=== PATIENT | male | born 1950 | race African-American/Black ===

== ENCOUNTER 2018-08-21 23:46 | Emergency (ER) | payer OTHER, MEDICAID ==
[~2018-08-21] VITALS: Ht 177.8 cm; Wt 73.0 kg
[~2018-08-21 23:46] MED LIST: ASPI-1158 PO; COR12 PO; FERR325T23 PO; FOLI-43 PO; ISOS30TA6 PO; LAM25 PO; LEVO25TA7 PO; LISI-186 PO; PHEN100C4 PO; THIA100T72 PO
[2018-08-21 23:56] VITALS: BP 170/90
== END 2018-08-22 00:45 | disposition left against medical advice (07) ==
LOC: ER 23:46
DX: Z53.21 Procedure and treatment not carried out due to patient leaving prior to being seen by health care provider (principal); J45.909 Unspecified asthma, uncomplicated; I11.9 Hypertensive heart disease without heart failure; R56.9 Unspecified convulsions

== ENCOUNTER 2018-11-15 14:34 | Inpatient (IN) | payer OTHER, MEDICAID ==
[~2018-11-15] VITALS: Ht 167.6 cm; Wt 67.1 kg
[2018-11-15 15:02] VITALS: BP 112/64
[2018-11-15] MEDS ORDERED: ACETAMINOPHEN 325MG TABLET PO PRN (18:30)
[2018-11-15] MEDS ORDERED: IPRATROPIUM/ALBUTEROL 0.5-3(2.5)MG/3ML NEB HHN PRN (18:30)
[2018-11-15] MEDS: HYDROCODONE/ACETAMINOPHEN 5/325MG TABLET PO PRN (19:53)
[2018-11-15 20:00] VITALS: BP 112/73
[2018-11-15] MEDS: ZOLPIDEM TARTRATE 5MG TABLET PO PRN (20:40)
[2018-11-15 23:47] VITALS: BP 113/65
[2018-11-16] VITALS: BP 106/58
[2018-11-16 04:00] VITALS: BP 114/66
[2018-11-16] MEDS: MORPHINE SULFATE 2 MG/ML CPJ (NOT FOR IM USE) IV PRN ×3 (04:05→22:11)
[2018-11-16] MEDS: SODIUM CHLORIDE 0.45% 1,000 ML IV SCH ×3 (04:06→13:47)
[2018-11-16 07:05] LABS: CHLORIDE 112 mEq/L (98-107)
[2018-11-16 08:00] VITALS: BP 104/65
[2018-11-16] MEDS: LEVOTHYROXINE SODIUM 25MCG TABLET PO SCH (08:08)
[2018-11-16] MEDS: PHENYTOIN SODIUM EXTENDED 100MG CAPSULE PO SCH ×3 (08:11→17:41)
[2018-11-16] MEDS: FOLIC ACID 1MG TABLET PO SCH (08:12)
[2018-11-16] MEDS: THIAMINE HCL 100MG TABLET PO SCH (08:12)
[2018-11-16] MEDS: ASPIRIN 81MG EC TABLET PO SCH (08:12)
[2018-11-16] MEDS: LAMOTRIGINE 25MG TABLET PO SCH (08:12)
[2018-11-16] MEDS: CARVEDILOL 12.5MG TABLET PO SCH ×2 (09:00→20:42)
[2018-11-16] MEDS: LISINOPRIL 5MG TABLET PO SCH (09:00)
[2018-11-16] MEDS: FERROUS SULFATE 325MG TABLET PO SCH (10:27)
[2018-11-16] MEDS: ISOSORBIDE MONONITRATE 30MG TABLET SR 24HR PO SCH (10:55)
[2018-11-16 12:00] VITALS: BP 99/61
[2018-11-16 16:00] VITALS: BP 120/68
[2018-11-16 16:26] LABS: HEMATOCRIT. 28.8 % (42.0-52.0); HEMOGLOBIN. 9.6 g/dL (14.0-18.0); MEAN CORPUSCULAR HEMOGLOBIN 34.7 pg (28.0-32.0); MEAN CORPUSCULAR VOLUME 104.2 fL (80.0-94.0); MEAN PLATELET VOLUME 9.6 fl (7.4-10.4); PLATELET 197 x1000/uL (130-400); RED BLOOD CELL COUNT 2.76 mill/uL (4.7-6.1); RED CELL DISTRIBUTION WIDTH 12.9 % (11.6-14.6)
[2018-11-16 16:52] LABS: PHOSPHORUS 2.9 mg/dL (2.5-4.9)
[2018-11-16 17:35] LABS: PLATELET ESTIMATE NORMAL
[2018-11-16] MEDS: ENOXAPARIN 40MG/0.4ML SYR SUBCUT SCH (17:43)
[2018-11-16 20:00] VITALS: BP 101/60
[2018-11-17] VITALS: BP 107/68
[2018-11-17] MEDS: ZOLPIDEM TARTRATE 5MG TABLET PO PRN ×2 (00:48→22:17)
[2018-11-17] MEDS: SODIUM CHLORIDE 0.45% 1,000 ML IV SCH (00:48)
[2018-11-17 04:00] VITALS: BP 112/74
[2018-11-17 07:41] LABS: HEMATOCRIT. 26.4 % (42.0-52.0); HEMOGLOBIN. 8.9 g/dL (14.0-18.0); MEAN PLATELET VOLUME 9.4 fl (7.4-10.4); PLATELET 187 x1000/uL (130-400); RED BLOOD CELL COUNT 2.56 mill/uL (4.7-6.1); RED CELL DISTRIBUTION WIDTH 12.8 % (11.6-14.6)
[2018-11-17 07:55] LABS: CHLORIDE 109 mEq/L (98-107)
[2018-11-17 08:00] VITALS: BP 114/57
[2018-11-17] MEDS: LEVOTHYROXINE SODIUM 25MCG TABLET PO SCH (08:27)
[2018-11-17] MEDS: LAMOTRIGINE 25MG TABLET PO SCH (09:28)
[2018-11-17] MEDS: THIAMINE HCL 100MG TABLET PO SCH (09:28)
[2018-11-17] MEDS: PHENYTOIN SODIUM EXTENDED 100MG CAPSULE PO SCH ×3 (09:28→18:40)
[2018-11-17] MEDS: FOLIC ACID 1MG TABLET PO SCH (09:28)
[2018-11-17] MEDS: CARVEDILOL 12.5MG TABLET PO SCH ×2 (09:29→22:16)
[2018-11-17] MEDS: ISOSORBIDE MONONITRATE 30MG TABLET SR 24HR PO SCH (09:29)
[2018-11-17] MEDS: LISINOPRIL 5MG TABLET PO SCH (09:30)
[2018-11-17] MEDS: FERROUS SULFATE 325MG TABLET PO SCH (09:30)
[2018-11-17] MEDS: ASPIRIN 81MG EC TABLET PO SCH (09:30)
[2018-11-17] MEDS: LORAZEPAM 2MG/ML CPJ IV PRN ×2 (10:47→19:46)
[2018-11-17 11:36] LABS: PLATELET ESTIMATE NORMAL
[2018-11-17 12:00] VITALS: BP 100/68
[2018-11-17] MEDS: MORPHINE SULFATE 2 MG/ML CPJ (NOT FOR IM USE) IV PRN (12:16)
[2018-11-17 14:20] LABS: CLARITY URINE CLEAR (CLEAR); COLOR URINE YELLOW (YELLOW); KETONES URINE NEGATIVE (NEGATIVE); LEUKOCYTE ESTERASE URINE NEGATIVE (NEGATIVE); NITRITE URINE NEGATIVE (NEGATIVE); OCCULT BLOOD URINE NEGATIVE (NEGATIVE); PROTEIN URINE NEGATIVE (NEGATIVE); SPECIFIC GRAVITY URINE 1.008 (1.005-1.030); UROBILINOGEN URINE 0.2 E.U./dL (0.2-1.0)
[2018-11-17 16:00] VITALS: BP 121/78
[2018-11-17] MEDS: ENOXAPARIN 40MG/0.4ML SYR SUBCUT SCH (18:40)
[2018-11-17 20:00] VITALS: BP 127/84
[2018-11-18] VITALS: BP 112/70
[2018-11-18] MEDS: SODIUM CHLORIDE 0.45% 1,000 ML IV SCH ×2 (03:20→17:32)
[2018-11-18 04:00] VITALS: BP 117/64
[2018-11-18] MEDS: LORAZEPAM 2MG/ML CPJ IV PRN ×2 (04:54→13:40)
[2018-11-18 07:12] LABS: HEMATOCRIT. 27.9 % (42.0-52.0); HEMOGLOBIN. 9.3 g/dL (14.0-18.0); MEAN CORPUSCULAR HEMOGLOBIN 34.1 pg (28.0-32.0); MEAN CORPUSCULAR VOLUME 101.7 fL (80.0-94.0); MEAN PLATELET VOLUME 9.3 fl (7.4-10.4); PLATELET 196 x1000/uL (130-400); RED BLOOD CELL COUNT 2.74 mill/uL (4.7-6.1); RED CELL DISTRIBUTION WIDTH 12.7 % (11.6-14.6)
[2018-11-18 07:30] LABS: CHLORIDE 109 mEq/L (98-107)
[2018-11-18 08:00] VITALS: BP 141/82
[2018-11-18] MEDS: FERROUS SULFATE 325MG TABLET PO SCH (09:32)
[2018-11-18] MEDS: THIAMINE HCL 100MG TABLET PO SCH (09:33)
[2018-11-18] MEDS: PHENYTOIN SODIUM EXTENDED 100MG CAPSULE PO SCH ×3 (09:33→17:32)
[2018-11-18] MEDS: LEVOTHYROXINE SODIUM 25MCG TABLET PO SCH (09:33)
[2018-11-18] MEDS: ASPIRIN 81MG EC TABLET PO SCH (09:34)
[2018-11-18] MEDS: FOLIC ACID 1MG TABLET PO SCH (09:34)
[2018-11-18] MEDS: LAMOTRIGINE 25MG TABLET PO SCH (09:34)
[2018-11-18] MEDS: ISOSORBIDE MONONITRATE 30MG TABLET SR 24HR PO SCH (09:37)
[2018-11-18] MEDS: CARVEDILOL 12.5MG TABLET PO SCH ×2 (09:38→21:29)
[2018-11-18] MEDS ORDERED: SODIUM POLYSTYRENE SULFONATE 15 G/60 ML BOT PO SCH (11:00)
[2018-11-18 12:00] VITALS: BP 106/61
[2018-11-18 16:00] VITALS: BP 127/82
[2018-11-18 16:20] LABS: PLATELET ESTIMATE NORMAL
[2018-11-18] MEDS: ENOXAPARIN 40MG/0.4ML SYR SUBCUT SCH (17:32)
[2018-11-19 00:41] VITALS: BP 98/67
[2018-11-19 04:00] VITALS: BP 105/68
[2018-11-19] MEDS: SODIUM CHLORIDE 0.45% 1,000 ML IV SCH ×2 (06:00→19:14)
[2018-11-19 06:26] LABS: HEMATOCRIT. 26.7 % (42.0-52.0); MEAN CORPUSCULAR HEMOGLOBIN 34.4 pg (28.0-32.0); MEAN CORPUSCULAR VOLUME 102.3 fL (80.0-94.0); MEAN PLATELET VOLUME 9.2 fl (7.4-10.4); PLATELET 210 x1000/uL (130-400); RED BLOOD CELL COUNT 2.61 mill/uL (4.7-6.1); RED CELL DISTRIBUTION WIDTH 12.5 % (11.6-14.6)
[2018-11-19 06:27] LABS: CHLORIDE 107 mEq/L (98-107)
[2018-11-19 08:00] VITALS: BP 139/71
[2018-11-19] MEDS: THIAMINE HCL 100MG TABLET PO SCH (08:39)
[2018-11-19] MEDS: LAMOTRIGINE 25MG TABLET PO SCH (08:39)
[2018-11-19] MEDS: PHENYTOIN SODIUM EXTENDED 100MG CAPSULE PO SCH ×3 (08:39→17:27)
[2018-11-19] MEDS: LEVOTHYROXINE SODIUM 25MCG TABLET PO SCH (08:39)
[2018-11-19] MEDS: ASPIRIN 81MG EC TABLET PO SCH (08:39)
[2018-11-19] MEDS: FOLIC ACID 1MG TABLET PO SCH (08:39)
[2018-11-19] MEDS: FERROUS SULFATE 325MG TABLET PO SCH (08:39)
[2018-11-19] MEDS: ISOSORBIDE MONONITRATE 30MG TABLET SR 24HR PO SCH (08:43)
[2018-11-19] MEDS: CARVEDILOL 12.5MG TABLET PO SCH ×2 (08:44→21:36)
[2018-11-19] MEDS: MORPHINE SULFATE 2 MG/ML CPJ (NOT FOR IM USE) IV PRN (10:27)
[2018-11-19] MEDS ORDERED: SODIUM POLYSTYRENE SULFONATE 15 G/60 ML BOT PO NR (11:00)
[2018-11-19 12:00] VITALS: BP 117/82
[2018-11-19] MEDS ORDERED: MORPHINE SULFATE 2 MG/ML CPJ (NOT FOR IM USE) IV NR (12:00)
[2018-11-19 12:50] LABS: PLATELET ESTIMATE NORMAL
[2018-11-19] MEDS: LORAZEPAM 2MG/ML CPJ IV PRN (13:44)
[2018-11-19 16:00] VITALS: BP 138/79
[2018-11-19] MEDS: ENOXAPARIN 40MG/0.4ML SYR SUBCUT SCH (17:27)
[2018-11-19 23:58] VITALS: BP 106/57
[2018-11-20 04:51] VITALS: BP 130/85
[2018-11-20 06:31] LABS: BASOPHILS % 1.5 % (0.0-2.0); EOSINOPHILS % 14.2 % (0.0-5.0); HEMATOCRIT. 26.6 % (42.0-52.0); HEMOGLOBIN. 8.9 g/dL (14.0-18.0); MEAN CORPUSCULAR HEMOGLOBIN 34.2 pg (28.0-32.0); MEAN CORPUSCULAR VOLUME 101.6 fL (80.0-94.0); MEAN PLATELET VOLUME 8.9 fl (7.4-10.4); MONOCYTES % 10.5 % (2.0-8.0); NEUTROPHILS % 40.8 % (40.0-76.0); PLATELET 224 x1000/uL (130-400); RED BLOOD CELL COUNT 2.61 mill/uL (4.7-6.1); RED CELL DISTRIBUTION WIDTH 12.5 % (11.6-14.6)
[2018-11-20 07:02] LABS: CHLORIDE 105 mEq/L (98-107)
[2018-11-20 08:00] VITALS: BP 138/85
[2018-11-20] MEDS: LAMOTRIGINE 25MG TABLET PO SCH (08:25)
[2018-11-20] MEDS: ASPIRIN 81MG EC TABLET PO SCH (08:25)
[2018-11-20] MEDS: THIAMINE HCL 100MG TABLET PO SCH (08:25)
[2018-11-20] MEDS: PHENYTOIN SODIUM EXTENDED 100MG CAPSULE PO SCH ×2 (08:25→15:33)
[2018-11-20] MEDS: FOLIC ACID 1MG TABLET PO SCH (08:26)
[2018-11-20] MEDS: CARVEDILOL 12.5MG TABLET PO SCH (08:26)
[2018-11-20] MEDS: LEVOTHYROXINE SODIUM 25MCG TABLET PO SCH (08:26)
[2018-11-20] MEDS: ISOSORBIDE MONONITRATE 30MG TABLET SR 24HR PO SCH (08:26)
[2018-11-20] MEDS: HYDROCODONE/ACETAMINOPHEN 5/325MG TABLET PO PRN (08:28)
[2018-11-20] MEDS: FERROUS SULFATE 325MG TABLET PO SCH (10:26)
[2018-11-20] MEDS: SODIUM CHLORIDE 0.45% 1,000 ML IV SCH (10:28)
[2018-11-20 12:00] VITALS: BP 128/79
[2018-11-20 15:40] VITALS: BP 128/68
== END 2018-11-20 16:42 | DRG 70 ==
LOC: 7WST 14:34
PROVIDERS: ADMIT Internal Medicine; ATTEND Internal Medicine
DX: G93.41 Metabolic encephalopathy (principal); N17.0 Acute kidney failure with tubular necrosis; E87.2 Acidosis; D64.9 Anemia, unspecified; E03.9 Hypothyroidism, unspecified; E86.0 Dehydration; E88.09 Other disorders of plasma-protein metabolism, not elsewhere classified; F12.90 Cannabis use, unspecified, uncomplicated; F17.200 Nicotine dependence, unspecified, uncomplicated; G40.909 Epilepsy, unspecified, not intractable, without status epilepticus; Z95.1 Presence of aortocoronary bypass graft; I25.10 Atherosclerotic heart disease of native coronary artery without angina pectoris; I12.9 Hypertensive chronic kidney disease with stage 1 through stage 4 chronic kidney disease, or unspecified chronic kidney disease; N18.9 Chronic kidney disease, unspecified; G89.4 Chronic pain syndrome; Z79.899 Other long term (current) drug therapy
CPT/HCPCS: 36415; 80048; 81003; 82550; 83735; 84100; 94640; C1893; J1650; J2060; J2270; J7070; J7620

== ENCOUNTER 2021-08-05 14:00 | Emergency (ER) | payer MEDICARE, MEDICAID ==
[~2021-08-05] VITALS: Ht 177.8 cm; Wt 82.0 kg
[~2021-08-05 14:00] MED LIST changes: -ASPI-1158 PO; +ASPI-1406 PO; -ISOS30TA6 PO; +ISOS30TA91 PO
[2021-08-05] MEDS ORDERED: LEVETIRACETAM 1000MG PREMIX 100 ML IV ONE (14:30)
[2021-08-05] MEDS ORDERED: HYDROCODONE/ACETAMINOPHEN 10/325MG TABLET PO ONE (15:00)
[2021-08-05 15:02] LABS: BASOPHILS % 0.9 % (0.0-2.0); CHLORIDE 105 mEq/L (98-107); EOSINOPHILS % 2.9 % (0.0-5.0); HEMATOCRIT. 39.9 % (42.0-52.0); HEMOGLOBIN. 13.2 g/dL (14.0-18.0); LYMPHOCYTES % 34.8 % (20.0-50.0); MEAN CORPUSCULAR HEMOGLOBIN 34.4 pg (28.0-32.0); MEAN PLATELET VOLUME 8.6 fl (7.4-10.4); MONOCYTES % 14.3 % (2.0-8.0); NEUTROPHILS % 47.1 % (40.0-76.0); PLATELET 257 x1000/uL (130-400); RED BLOOD CELL COUNT 3.84 mill/uL (4.7-6.1); RED CELL DISTRIBUTION WIDTH 12.9 % (11.6-14.6)
[2021-08-05 15:12] LABS: CARBAMAZEPINE < 0.5 ug/mL (4-12); ETHANOL BLOOD < 10 mg/dL; PHENOBARBITAL < 2.1 ug/mL (15.0-40.0); VALPROIC ACID <3.0 ug/mL ug/mL (50-100)
[2021-08-05 21:00] VITALS: BP 109/60
== END 2021-08-05 22:38 ==
LOC: ER 14:00
DX: S09.8XXA Other specified injuries of head, initial encounter (principal); W18.39XA Other fall on same level, initial encounter; Y93.89 Activity, other specified; Y92.89 Other specified places as the place of occurrence of the external cause; Y99.8 Other external cause status; R56.9 Unspecified convulsions; R51.9 Headache, unspecified; E11.9 Type 2 diabetes mellitus without complications; I10 Essential (primary) hypertension; F12.10 Cannabis abuse, uncomplicated; Z79.899 Other long term (current) drug therapy
CPT/HCPCS: 36415; 70450; 80053; 80156; 80165; 80184; 80185; 80320; 85025; 96365; 99285; J1953; G0480

== ENCOUNTER 2022-01-09 13:33 | Emergency (ER) | payer MEDICARE, MEDICAID ==
[~2022-01-09] VITALS: Ht 165.1 cm; Wt 64.0 kg
[2022-01-09 13:44] VITALS: BP 133/79
== END 2022-01-09 17:00 | disposition home or self-care (01) ==
LOC: ER 13:33
DX: Z00.00 Encounter for general adult medical examination without abnormal findings (principal); R10.13 Epigastric pain; I13.0 Hypertensive heart and chronic kidney disease with heart failure and stage 1 through stage 4 chronic kidney disease, or unspecified chronic kidney disease; E11.22 Type 2 diabetes mellitus with diabetic chronic kidney disease; N18.9 Chronic kidney disease, unspecified; F41.9 Anxiety disorder, unspecified; R56.9 Unspecified convulsions; Z79.82 Long term (current) use of aspirin; Z98.62 Peripheral vascular angioplasty status
CPT/HCPCS: 74018; 99283

== ENCOUNTER 2023-04-22 17:52 | Emergency (ER) | payer MEDICARE, MEDICAID ==
[~2023-04-22] VITALS: Ht 175.3 cm; Wt 82.0 kg
[2023-04-22 17:55] VITALS: TEMP 98.6; O2SAT 93
[2023-04-22] MEDS: KETOROLAC 60MG/2ML VIAL IM ONE (20:17)
[2023-04-22] MEDS: HYDROCODONE/ACETAMINOPHEN 5/325MG TABLET PO ONE (20:17)
[2023-04-22] MEDS ORDERED: TOPUD PO (20:23)
[2023-04-23 00:20] VITALS: BP 100/60; PULSE 70; RESP 15
[2023-05-02] MEDS ORDERED: LEVO25TA7 PO (16:34)
== END 2023-04-23 01:01 ==
LOC: ER 17:52
DX: M54.50 Low back pain, unspecified (principal); F41.9 Anxiety disorder, unspecified; J44.9 Chronic obstructive pulmonary disease, unspecified; I12.0 Hypertensive chronic kidney disease with stage 5 chronic kidney disease or end stage renal disease
CPT/HCPCS: 99283; 96372; J1885